=== PATIENT | female | born 1995 | race Two or more races ===

== ENCOUNTER 2017-10-14 23:32 | Emergency (ER) | payer OTHER ==
[~2017-10-14] VITALS: Ht 167.6 cm; Wt 68.0 kg
[2017-10-14 23:38] VITALS: Ht 167.6 cm; Wt 68.0 kg
[2017-10-15 01:22] VITALS: BP 104/68
== END 2017-10-15 01:22 | disposition home or self-care (01) ==
LOC: ED 23:32
DX: J20.9 Acute bronchitis, unspecified (principal); K21.9 Gastro-esophageal reflux disease without esophagitis
CPT/HCPCS: 87804; J1885